=== PATIENT | female | born 2000 | race Caucasian/White ===

== ENCOUNTER 2018-05-15 15:39 | Emergency (ER) | payer OTHER ==
[2018-05-15 15:46] VITALS: BP 154/82; TEMP 99; BMI 36.0
[2018-05-15] MEDS ORDERED: STADOL IM STA (15:53)
[2018-05-15] MEDS ORDERED: NORFLEX IM STA (15:53)
[2018-05-15] MEDS ORDERED: TORADOL IM STA (15:53)
--- NOTE | 2018-05-15 17:14 | CT ---
EXAM: CT abdomen pelvis without contrast TECHNIQUE: Helical axial CT of the abdomen and pelvis was performed without contrast with coronal an d sagittal reconstructions. COMPARISON: CT abdomen pelvis from 07/18/2014 HISTORY: Abdominal pain FINDINGS: There is no acute abnormality. Specifically there is no mesenteric inflammation, free air, free fluid or bowel wall thickening or edema or pathologic lymph nodes or obstruction or ileus. The liver, spleen, pancreas,and adrenal glands show no acute abnormality. Lung bases are well-aerate d. There is no hiatal hernia. There are small stones or sludge in the gallbladder which is not infla med. There is no biliary or pancreatic ductal dilatation. There are no suspicious renal masses or large cysts and no hydronephrosis. There are no kidney stones . Both ureters demonstrate normal course and caliber. There is no filling defect in the urinary blad eduard. Uterus and adnexa are unremarkable. There are no ovarian cysts. The appendix is unremarkable. There are no colonic diverticula. There are no abdominal wall hernias. The aorta is normal with no aneurysm or calcific atherosclerosis. There are no acute osseous abnorma lities. IMPRESSION: 1. No acute abnormality in the abdomen or pelvis. 2. Calcified sludge or small stones in the gallbladder which is not inflamed.
--- NOTE | 2018-05-15 17:20 | CT ---
EXAM: CT lumbar spine without contrast. HISTORY: Lower back pain COMPARISON: CT abdomen pelvis same day and CT abdomen pelvis 07/18/2014 TECHNIQUE: Serial axial images of the spine were obtained from the lower thoracic spine through the pelvis without contrast. These were viewed in multiple planes. FINDINGS: Vertebral bodies demonstrate normal height, disc space and alignment. There is no hannah maria l fracture or subluxation. The lumbosacral junction is intact. The facets and posterior processe s are unremarkable. Posterior and transverse processes are normal. The soft tissues are better eval uated on same day CT abdomen pelvis. IMPRESSION: No acute compression fracture or subluxation of the lumbar spine.
--- NOTE | 2018-05-15 17:30 | ED.PDOC ---
General ED Provider: Dr. EVA BLACK-ER Chief Complaint: Back Pain Stated Complaint: i bent over to wash my hair and my back hurt Time Seen by Physician: 15:45 Mode of Arrival: Walk-In Information Source: Patient Exam Limitations: No limitations Nursing and Triage Documentation Reviewed and Agree: Yes Does patient meet sepsis criteria?: No System Inflammatory Response Syndrome: Not Applicable Sepsis Protocol: For patient's 13 years and over: Temp is 96.8 and below OR 101 and greater Pulse >90 BPM Resp >20/minute Acutely Altered Mental Status Are patient's symptoms suggestive of a new infection, such as: -Pneumonia -Skin, Soft Tissue -Endocarditis -UTI -Bone, Joint Infection -Implantable Device -Acute Abdominal Infection -Wound Infection -Meningitis -Blood Stream Catheter Infection -Unknown Musculoskeletal Complaint Exam - Back Pain Complaint/Exam Mechanism of Injury: Reports: No known trauma Onset/Duration: 24hrs Symptoms Are: Still present Timing: Constant Episodes Lasting: Hours Initial Severity: Mild Current Severity: Moderate Location: Reports: Discrete (lumbar spine) Character: Reports: Dull, Aching, Throbbing, Spasmodic, Stiffness Aggravating: Reports: Movements, Lifting, Bending, Walking Alleviating: Reports: None AAA Risk Factors: Reports: None Cauda Equina Risk Factors: Reports: None Epidural Abcess Risk Factors: Reports: None Focal Tenderness: Yes Paraspinal Muscle Tenderness: Yes Paraspinal Muscle Spasm: Yes Scoliosis: No Lordosis: No Kyphosis: No SLR Test: Right Negative, Left Negative Hip Motion Testing Pain: Right Negative, Left Negative Focal Weakness: Present: None Focal Sensory Loss: Present: None Gait: Present: Normal Differential Diagnoses: Herniated Disk, Renal Colic Review of Systems - Review Of Systems Constitutional: Reports: No symptoms Eyes: Reports: No symptoms Ears, Nose, Mouth, Throat: Reports: No symptoms Respiratory: Reports: No symptoms Cardiac: Reports: No symptoms GI: Reports: No symptoms : Reports: No symptoms Musculoskeletal: Reports: Back pain, Muscle pain, Muscle stiffness Skin: Reports: No symptoms Neurological: Reports: No symptoms Endocrine: Reports: No symptoms Hematologic/Lymphatic: Reports: No symptoms All Other Systems: Reviewed and Negative Past Medical History - Past Medical History Previously Healthy: Yes Endocrine: Reports: Unknown Cardiovascular: Reports: Unknown Respiratory: Reports: Unknown Hematological: Reports: Unknown Gastrointestinal: Reports: Unknown Genitourinary: Reports: Unknown Neuro/Psych: Reports: Unknown Musculoskeletal: Reports: Back Pain Cancer: Reports: Unknown Last Menstrual Period: 1 year, was on Depo shot. - Surgical History General Surgical History: Reports: Unknown - Family History Family History: Reports: Unknown - Social History Smoking Status: Current every day smoker, Light tobacco smoker Hx Substance Use: No Alcohol Screening: None Physical Exam - Physical Exam Appearance: Well-appearing, No pain distress, Well-nourished Pain Distress: Moderate Eyes: TRISTEN, EOMI, Conjunctiva clear ENT: Ears normal, Nose normal, Oropharynx normal Neck: Supple Respiratory: Airway patent Cardiovascular: RRR, Pulses normal, No rub, No murmur GI/: Soft, Nontender, No masses, Bowel sounds normal, No Organomegaly Musculoskeletal: Limited ROM Skin: Warm, Dry, Normal color Neurological: Sensation intact, Motor intact, Reflexes intact, Cranial nerves intact, Alert, Oriented Psychiatric: Affect appropriate, Mood appropriate Interpretation - Radiology Interpretation Radiology Interpretation By: Radiologist Radiology Results: Positive Exam Interpreted: CT Scan Re-Evaluation - Re-Evaluation Time of Re-Evaluation: 17:30 Status: Improved Vital Signs Stable: Yes Pain Level: 2 Appearance: NAD Lungs: Clear Skin: Warm and Dry Neuro: Alert and Oriented X3 CV: RRR Critical Care Note - Critical Care Note Total Time (mins): 0 Course - Course Orders, Labs, Meds: Lab Review 05/15/18 05/15/18 16:20 16:20 Urine Color Yellow Urine Clarity Cloudy Urine pH 6.0 Ur Specific Schaller 1.025 Urine Protein 1+ Urine Glucose (UA) Negative Urine Ketones Negative Urine Blood Trace-intact Urine Nitrite Negative Urine Bilirubin Negative Urine Urobilinogen 0.2 Ur Leukocyte Esterase 1+ Urine Microscopic RBC 0-2 Urine Microscopic WBC 2-5 Ur Squamous Epith Cells 20-30 Urine Bacteria 3+ Urine Test Negative Orders Category Date Time Status URINALYSIS C & S IF INDICATED Stat LAB 05/15/18 16:20 Completed URINE CULTURE Stat LAB 05/15/18 16:20 Received URINE Stat LAB 05/15/18 16:20 Completed Butorphanol Tartrate [Stadol] MEDS 05/15/18 15:53 Discontinued 2 mg IM ONCE STA Ketorolac Tromethamine [Toradol] MEDS 05/15/18 15:53 Discontinued 60 mg IM ONCE STA Orphenadrine Citrate [Norflex] MEDS 05/15/18 15:53 Discontinued 60 mg IM ONCE STA CT ABDOMEN/PELVIS WO CONTRAST Stat RADS 05/15/18 15:[address] LUMBAR SPINE W/O CONTRAST Stat RADS 05/15/18 15:52 Completed Medications Discontinued Medications Generic Name Dose Route Start Last Admin Trade Name Freq PRN Reason Stop Dose Admin Butorphanol Tartrate 2 mg 05/15/18 15:53 05/15/18 16:43 Stadol IM 05/15/18 15:54 2 mg ONCE STA Administration Ketorolac Tromethamine 60 mg 05/15/18 15:53 05/15/18 16:41 Toradol IM 05/15/18 15:54 60 mg ONCE STA Administration Orphenadrine Citrate 60 mg 05/15/18 15:53 05/15/18 16:44 Norflex IM 05/15/18 15:54 60 mg ONCE STA Administration Vital Signs: Temp Pulse Resp BP Pulse Ox 05/15/18 15:39 99.0 F 127 H 20 154/82 H 97 Departure - Departure Time of Disposition: 17:31 Disposition: HOME SELF-CARE Discharge Problem: Low back pain Qualifiers: Chronicity: acute Back pain laterality: unspecified Sciatica presence: without sciatica Qualified Code(s): M54.5 - Low back pain UTI (urinary tract infection) Qualifiers: Urinary tract infection type: site unspecified Hematuria presence: without hematuria Qualified Code(s): N39.0 - Urinary tract infection, site not specified Instructions: Acute Low Back Pain (ED) Condition: Good Pt referred to PMD for follow-up: No IPMP verified?: No Additional Instructions: bactrim ds bid x 7 days--norco 5mg q 4hrs prn pain #10--flexeril 10mg tid prn spasm #21---f/u with [facility] Allergies/Adverse Reactions: Allergies No Known Allergies Allergy (Verified 05/15/18 15:46) Home Medications: Ambulatory Orders 1 [No Reported Medications] 07/18/14 Disposition Discussed With: Patient, Family
== END 2018-05-15 17:40 | disposition home or self-care (01) ==
LOC: ED 15:39
DX: M54.5 Low back pain (principal); N39.0 Urinary tract infection, site not specified; F17.210 Nicotine dependence, cigarettes, uncomplicated
CPT/HCPCS: 81001; 81025; 87086; 96372; 99283